=== PATIENT | male | born 1975 | race Caucasian/White ===

== ENCOUNTER 2016-12-31 14:07 | Emergency (ER) | payer BC ==
[~2016-12-31] VITALS: Wt 72.6 kg
[~2016-12-31 14:07] MED LIST: HYDROCODONE BIT1 T11 PO; LOMOTIL 0.025 M1 TA1 PO; MOTRIN800 MG PO; Motrin,Rufen800 MG PO; NAPROSYN500 MG PO; PREDNISONE20 MG PO; TRAMADOL HCL50 MG PO; VICODIN 5/500 505 MG PO; ZOFRAN ODT4 MG SL
[2016-12-31] MEDS ORDERED: ULTRAM50 MG PO (16:02)
[2016-12-31] MEDS ORDERED: Motrin,Rufen800 MG PO (16:02)
[2016-12-31] MEDS ORDERED: CYCLOBENZAPRINE5 M3 PO (16:02)
== END 2016-12-31 16:10 | disposition home or self-care (01) ==
LOC: ED 14:07
DX: S39.012A Strain of muscle, fascia and tendon of lower back, initial encounter (principal); F17.200 Nicotine dependence, unspecified, uncomplicated; X50.0XXA Overexertion from strenuous movement or load, initial encounter; Y93.89 Activity, other specified; Y92.9 Unspecified place or not applicable; Y99.9 Unspecified external cause status

== ENCOUNTER 2017-07-25 13:27 | Emergency (ER) | payer OTHER ==
[~2017-07-25] VITALS: Ht 165.1 cm; Wt 65.8 kg
[~2017-07-25 13:27] MED LIST changes: +CYCLOBENZAPRINE5 M3 PO; +ULTRAM50 MG PO
== END 2017-07-25 16:16 | disposition home or self-care (01) ==
LOC: ED 13:27
DX: S46.811A Strain of other muscles, fascia and tendons at shoulder and upper arm level, right arm, initial encounter (principal); F17.200 Nicotine dependence, unspecified, uncomplicated; Z71.6 Tobacco abuse counseling; X50.1XXA Overexertion from prolonged static or awkward postures, initial encounter; Y93.89 Activity, other specified; Y92.099 Unspecified place in other non-institutional residence as the place of occurrence of the external cause; Y99.9 Unspecified external cause status

== ENCOUNTER 2018-05-19 19:39 | Emergency (ER) | payer SELFPAY ==
[~2018-05-19] VITALS: Wt 70.3 kg
--- NOTE | ~2018-05-19 | EKG ---
[place], [place] ELECTROCARDIOGRAM REPORT NAME: IRASEMA RAY UNIT #: [id number] ROOM: DOCTOR: EPIPHANY DRAFT REPORT BIRTHDATE: [birth year] [facility] Test Date: 2018-05-19 Test Time: 21:36:27 Pat Name: IRASEMA RAY Department: ER Room: 22 Gender: M An/Syq 13 Nav/C2 Operator: Roge Mishra : 1975 Requested By: YOMI DELGADO Order Number: [id number] Reading MD: Eric Guallpa MD Measurements Intervals [place] Rate: 85 P: 27 SC: 181 QRS: 10 QRSD: 88 T: 26 QT: 354 QTc: 421 Interpretive Statements Sinus rhythm ST elevation suggests acute pericarditis Baseline wander in lead(s) V1 Electronically Signed On 05-22-2018 14:05:08 PST by Eric Guallpa MD CM:EKGRPT:ELECTROCARDIOGRAM REPORT [id number] YOMI DELGADO EPIPHANY DRAFT REPORT YOMI DELGADO
[2018-05-19 22:03] LABS: BASO # 0.1 10*3/uL (0.0-0.1); BASO % 0.6 % (0.0-1.0); EOS # 0.5 10*3/uL (0.0-0.4); EOS % 2.5 % (1.0-4.0); HEMATOCRIT 46.8 % (42.0-52.0); HEMOGLOBIN 15.7 g/dl (14.0-18.0); LYMPH # 4.6 10*3/uL (1.3-4.4); LYMPH % 23.4 % (27.0-41.0); MEAN CELL VOLUME 90.2 fl (80.0-94.0); MEAN CORPUSCULAR HGB 30.3 pg (27.0-31.0); MEAN CORPUSCULAR HGB CONC 33.5 g/dl (33.0-37.0); MEAN PLATELET VOLUME 8.7 fl (9.6-12.3); MONO # 1.3 10*3/uL (0.1-1.0); MONO % 6.5 % (3.0-9.0); NEUT # 13.1 10*3/uL (2.3-7.9); NEUT % 66.7 % (47.0-73.0); PLATELET COUNT AUTOMATED 363 10*3/uL (130-400); RED BLOOD COUNT 5.19 10*6/uL (4.50-5.90); RED CELL DISTRI WIDTH 12.3 % (0-14.5); WHITE BLOOD COUNT 19.6 10*3/uL (4.8-10.8)
[2018-05-19 22:22] LABS: ALBUMIN 3.9 gm/dl (3.1-4.5); ALKALINE PHOSPHATASE 171 U/L (45-117); BUN 13 mg/dl (7-24); CHLORIDE 108 mmol/L (98-107); CREATININE 1.17 mg/dL (0.70-1.30); LIPASE 207 U/L (73-393); POTASSIUM 3.9 mmol/L (3.5-5.1); SGOT/AST 15 IU/L (3-35); SGPT/ALT 22 U/L (12-78); SODIUM 139 mmol/L (136-145); TOTAL PROTEIN 7.6 gm/dL (6.4-8.2)
[2018-05-19 22:26] LABS: TROPONIN I < 0.015 ng/ml (<0.045)
[2018-05-20] MEDS ORDERED: INDOMETHACIN50 MG PO (02:00)
== END 2018-05-20 02:36 | disposition left against medical advice (07) ==
LOC: ED 19:39
PROVIDERS: Nurse Practitioner Family
DX: R06.02 Shortness of breath (principal); M25.511 Pain in right shoulder; F17.200 Nicotine dependence, unspecified, uncomplicated

== ENCOUNTER 2018-09-25 17:15 | Emergency (ER) | payer SELFPAY ==
[~2018-09-25] VITALS: Ht 165.1 cm; Wt 74.8 kg
[~2018-09-25 17:15] MED LIST changes: +INDOMETHACIN50 MG PO
[2018-09-25] MEDS ORDERED: ROBAXIN500 M1 PO (19:09)
[2018-09-25] MEDS ORDERED: MEDROL DOSEPAK4 MG PO (19:09)
[2018-09-25] MEDS ORDERED: NAPROSYN500 MG PO (19:09)
[2019-01-12] MEDS ORDERED: IBU800 MG PO (18:22)
== END 2018-09-25 19:17 | disposition home or self-care (01) ==
LOC: ED 17:15
DX: S46.912A Strain of unspecified muscle, fascia and tendon at shoulder and upper arm level, left arm, initial encounter (principal); X50.0XXA Overexertion from strenuous movement or load, initial encounter; Y93.89 Activity, other specified; Y92.89 Other specified places as the place of occurrence of the external cause; Y99.0 Civilian activity done for income or pay

== ENCOUNTER → 2019-05-15 | Outpatient (CLI) | payer OTHER ==
[~2019-05-15] MED LIST changes: +IBU800 MG PO; +MEDROL DOSEPAK4 MG PO; +ROBAXIN500 M1 PO
== END | disposition home or self-care (01) ==
LOC: MRI 09:46
DX: M19.012 Primary osteoarthritis, left shoulder (principal); M75.42 Impingement syndrome of left shoulder

== ENCOUNTER → 2019-06-09 | Outpatient (CLI) | payer OTHER ==
[2019-06-09 15:31] LABS: BASO # 0.1 10*3/uL (0.0-0.1); BASO % 0.8 % (0.0-1.0); EOS # 0.3 10*3/uL (0.0-0.4); EOS % 2.9 % (1.0-4.0); HEMATOCRIT 47.7 % (42.0-52.0); HEMOGLOBIN 16.2 g/dl (14.0-18.0); LYMPH # 4.3 10*3/uL (1.3-4.4); LYMPH % 36.3 % (27.0-41.0); MEAN CORPUSCULAR HGB 30.9 pg (27.0-31.0); MONO # 0.6 10*3/uL (0.1-1.0); NEUT # 6.4 10*3/uL (2.3-7.9); NEUT % 54.7 % (47.0-73.0); PLATELET COUNT AUTOMATED 361 10*3/uL (130-400); RED BLOOD COUNT 5.24 10*6/uL (4.50-5.90); RED CELL DISTRI WIDTH 12.3 % (0-14.5); WHITE BLOOD COUNT 11.8 10*3/uL (4.8-10.8)
[2019-06-09 16:06] LABS: ALBUMIN 3.9 gm/dl (3.1-4.5); ALKALINE PHOSPHATASE 158 U/L (45-117); BUN 9 mg/dl (7-24); CHLORIDE 111 mmol/L (98-107); POTASSIUM 3.8 mmol/L (3.5-5.1); SGOT/AST 23 IU/L (3-35); SGPT/ALT 37 U/L (12-78); SODIUM 141 mmol/L (136-145); TOTAL PROTEIN 7.4 gm/dL (6.4-8.2)
== END | disposition home or self-care (01) ==
LOC: LAB 14:25
PROVIDERS: Orthopaedic Surgery
DX: M19.012 Primary osteoarthritis, left shoulder (principal)

== ENCOUNTER 2022-02-15 20:25 | Emergency (ER) | payer OTHER ==
[~2022-02-15] VITALS: Ht 165.1 cm; Wt 80.3 kg
[2022-02-15] MEDS ORDERED: NAPROXEN250 MG PO (20:49)
== END 2022-02-15 20:53 | disposition home or self-care (01) ==
LOC: ED 20:25
DX: G56.01 Carpal tunnel syndrome, right upper limb (principal)